=== PATIENT | female | born 1995 | race African-American/Black ===

== ENCOUNTER → 2020-06-07 | Outpatient (CLI) | payer OTHER ==
--- NOTE | 2020-06-07 13:40 | PFTRPT ---
Height: 64.00 Inches Weight: 145.00 Lbs BSA: 1.71 Diagnosis: ASTHMA DATE: 06/07/2020 ORDERING PHYSICIAN: MIREILLE Rincon Pre and post bronchodilator studies have excellent technical quality. Forced vital capacity is reduced. FEV1 is in proportion. Obstructive index is therefore normal. Expiratory limit of the flow-volume loop does suggest some degree of flow rate limitation. No significant bronchodilator response is identified. Total lung capacity is mildly reduced. Residual volume is in proportion. Diffusing capacity is normal but no hemoglobin available for correction. Airway resistance and conductance are normal. IMPRESSION: Mild restrictive ventilatory impairment. Please correlate clinically. MTDD
== END ==
LOC: M CARPUL 13:12
PROVIDERS: ATTEND Physician Assistant
DX: J45.909 Unspecified asthma, uncomplicated (principal)

== ENCOUNTER → 2020-09-30 | Outpatient (REF) ==
--- NOTE | 2020-09-30 10:51 | REP ---
INDICATION: SOB COMPARISON: None. TECHNIQUE: PA and lateral. FINDINGS: The mediastinum and cardiac silhouette are normal. The lung giordano are clear and without acute consolidation, effusion, or pneumothorax. The skeletal structures are intact and normal. IMPRESSION: No acute cardiopulmonary process. <Electronically signed by Vini Xiao > 09/30/20 [id number]
== END ==
LOC: M PLAIMG 10:32
PROVIDERS: ATTEND Internal Medicine
DX: R06.02 Shortness of breath (principal)

== ENCOUNTER → 2020-09-30 | Outpatient (CLI) | payer OTHER ==
[~2020-09-30] MED LIST: METHACHOLINE KIT (J7674) INH ONE
--- NOTE | 2020-09-30 15:41 | PFTRPT ---
Height: 64.00 Inches Weight: 145.00 Lbs BSA: 1.71 Diagnosis: R06.02 DATE: 09/30/2020 ORDERED BY: Niurka Herzog NP QUALITY: Study of excellent technical quality. PROCEDURE: Under protocol, methacholine was administered. At a dose of 2.5 mg or 13.875 CDUs, a 21% decline in the FEV1 was noted. PC of 2.20 is significant. Flow rates did return to baseline post bronchodilator administration. IMPRESSION: Positive methacholine challenge study. MTDD
== END ==
LOC: M CARPUL 14:58
PROVIDERS: ATTEND Nurse Practitioner Adult Health
DX: R06.02 Shortness of breath (principal)

== ENCOUNTER → 2020-10-19 | Outpatient (CLI) | payer OTHER ==
--- NOTE | 2020-10-19 15:50 | REP ---
INDICATION: MIILD PERSISTENT ASTHMA. COMPARISON: Two-view chest 09/30/2020, 09/20/2020 TECHNIQUE: Noncontrast CT with both coronal and sagittal reconstructions provided. FINDINGS: The lung giordano are well inflated without infiltrate, effusion, atelectasis or mass. No pleural thickening or effusion. No apical scarring, pneumothorax or pneumomediastinum. Heart is not enlarged and there is no pericardial thickening or effusion. A thymic remnant is seen in the superior mediastinum, normal. The aorta is without aneurysm. No pathologic sized mediastinal, hilar, axillary or supraclavicular adenopathy and the bone windows are unremarkable. The upper abdomen shows that portion of liver, spleen, gallbladder, adrenal glands, upper poles of kidneys and pancreas to be unremarkable. The stomach without hiatal hernia. Visualized bowel loops are unremarkable. IMPRESSION: Negative CT chest. <Electronically signed by Marcial Smith > 10/19/20 [id number]
== END ==
LOC: M PLAIMG 14:09
PROVIDERS: ATTEND Nurse Practitioner Adult Health
DX: J45.909 Unspecified asthma, uncomplicated (principal)